=== PATIENT | male | born 2000 | race Caucasian/White ===

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

== ENCOUNTER 2023-02-06 17:16 | Emergency (ER) | payer OTHER, SELFPAY ==
--- NOTE | ~2023-02-06 | XR_ITS ---
EXAMINATION: XR knee RT 3V DATE: 02/06/2023 17:43 INDICATION: Right knee pain TECHNIQUE: Three views of the right knee were obtained. COMPARISON: None. FINDINGS: Alignment is normal. No fracture or osteochondral lesion. Joint spaces are normal with no e rosions. No joint effusion/synovitis. There is marked prepatellar soft tissue swelling of the knee. IMPRESSION: 1. Marked prepatellar knee soft tissue swelling without acute osseous abnormality. Reviewed, dictated and finalized at location F. IMPRESSION: 1. Marked prepatellar knee soft tissue swelling without acute osseous abnormali ty.
--- NOTE | 2023-02-06 17:25 | ED.LOWEXIN ---
HPI - Extremity Injury (Lower) General Chief Complaint: Extremity Injury, Lower Stated Complaint: Right knee injury Time Seen by Provider: 02/06/23 17:26 Source: patient and RN notes reviewed History of Present Illness HPI Narrative: Patient is a 22-year-old male who presents to urgent care with complaints of right knee pain and swelling. 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 Patient does not wear knee pads. No other acute complaints. No acute distress noted. Patient aware of the plan of care. Some parts of this dictation were generated by voice recognition software and may contain typographical and/or grammatical inaccuracies. Related Data Home Medications Medication Instructions Recorded Confirmed erythromycin 5 mg/gram (0.5 %) eye 02/06/23 02/06/23 ointment Allergies Allergy/AdvReac Type Severity Reaction Status Date / Time poison sosa extract Allergy Unknown Rash Verified 02/06/23 17:28 Review of Systems Review of Systems: CONSTITUTIONAL: Denies fever, chills, or sweats. EYES: Denies visual changes, redness, or discharge. ENT: Denies rhinorrhea, congestion, sore throat, or otalgia. CARDIOVASCULAR: Denies chest pain, palpitations, or edema. RESPIRATORY: Denies cough or dyspnea. GASTROINTESTINAL: Denies abdominal pain, nausea, vomiting, or diarrhea. GENITOURINARY: Denies dysuria or hematuria. SKIN: Denies rash or itching. MUSCULOSKELETAL: Reports of anterior right knee pain NEUROLOGIC: Denies headache, numbness, or weakness. All other systems reviewed are negative, except as documented in HPI. PMFSH Comments At the time of my signature, I reviewed and agree with the nursing past medical, surgical, social, and family history. There is no relevant family history pertinent to the patient complaint. Exam Narrative: GENERAL: This is a well-nourished, well-developed patient, in no apparent distress. HEAD: normocephalic, atraumatic. EYES: PERRL. Sclera clear/white. Vision is grossly intact. EARS: External ears normal, NOSE: External nose normal with no obvious nasal discharge, nares without redness, no rhinorrhea. THROAT: Mucous membranes moist NECK: Neck supple SKIN: warm, intact with no suspicious lesions or rash, good texture and turgor. NEURO: awake, alert, and oriented to person, place and time. There were no obvious focal neurologic abnormalities. EXTREMITIES: Moderate edema, consistent with bursitis with mild erythema to the anterior aspect of the right patellar. Negative anterior drawer test. Range of motion with flexion to the right leg limited due to pain. Positive strong right pedal pulse with capillary refill less than 2 seconds. Course Course Level of Care: Express Care Visit Vital Signs Vital signs: Vital Signs Temperature 98.9 F 02/06/23 17:26 Pulse Rate 99 02/06/23 17:26 Respiratory Rate 16 02/06/23 17:26 Blood Pressure 152/69 H 02/06/23 17:26 Pulse Oximetry 99 02/06/23 17:26 Oxygen Delivery Room Air 02/06/23 17:26 Temperature 98.9 F 02/06/23 17:29 Pulse Rate 99 02/06/23 17:29 Respiratory Rate 16 02/06/23 17:29 Blood Pressure 152/69 H 02/06/23 17:29 Pulse Oximetry 99 02/06/23 17:29 Oxygen Delivery Room Air 02/06/23 17:29 Reviewed- Patient is informed that they may have pre-hypertension or hypertension based on a blood pressure reading in the department. I recommend the patient call the primary care provider listed on their discharge instructions or a physician of their choice this week to arrange follow-up for further evaluation of possible pre-hypertension or hypertension. MDM - Extremity Injury (Lower) MDM Narrative Medical decision making narrative: Reviewed x-ray results with the patient. He is aware that there is no fracture however notable swelling to the anterior
[2023-02-06 17:26] VITALS: BP 152/69; PULSE 99; RESP 16; TEMP 37.2; O2SAT 99
[2023-02-06 17:29] VITALS: BP 152/69; PULSE 99; RESP 16; TEMP 37.2; O2SAT 99
== END 2023-02-06 18:04 | disposition home or self-care (01) ==
PROVIDERS: Emergency Provider Nurse Practitioner Family
DX: M25.561 Pain in right knee (principal); M25.461 Effusion, right knee
CPT/HCPCS: 73562; 99213; G0463

== ENCOUNTER 2023-10-20 12:18 | Emergency (ER) | payer OTHER, SELFPAY ==
[2023-10-20 12:26] VITALS: BP 145/76; PULSE 116; RESP 20; TEMP 37.9; O2SAT 98
--- NOTE | 2023-10-20 13:23 | ED.URI ---
HPI - URI/Sore Throat General Chief Complaint: Upper Respiratory Infection Stated Complaint: Sore Throat/Fever History of Present Illness HPI Narrative: 22 y/o male presented for c/o sore throat with painful swallow x2 days. Also with fever and vomiting and diarrhea yesterday. Started taking augmentin x2 days prescribed 2 weeks ago for infected vein. denies cough, sob, wheezing or lethargy. Related Data Home Medications Medication Instructions Recorded Confirmed amoxicillin 875 mg-potassium 1 tablet PO BID 10/20/23 10/20/23 clavulanate 125 mg tablet Allergies Allergy/AdvReac Type Severity Reaction Status Date / Time poison sosa extract Allergy Unknown Rash Verified 02/06/23 17:28 Review of Systems Review of Systems: CONSTITUTIONAL: Denies body aches, fever, chills, or sweats. EYES: Denies visual changes, redness, or discharge. ENT: reports rhinorrhea, congestion, sore throat denies otalgia. CARDIOVASCULAR: Denies chest pain, palpitations, or edema. RESPIRATORY: Denies dyspnea. MUSCULOSKELETAL: Denies back pain, joint pain, or myalgia. NEUROLOGIC: Denies headache Exam Narrative: GENERAL: mildly Ill-appearing, no acute distress. EYES: conjunctivae clear ENT: Mucous membranes moist. TMs pearly velasquez with normal light reflex bilaterally; no tragal tenderness. Oropharynx erythematous without lesions. Tonsils enlarged right slightly bigger than left, without exudate. No drooling, no hoarseness, no trismus, uvula midline. No tripod positioning, hot potato voice, or soft palate swelling. NECK: Supple. bilateral anterior cervical lymphadenopathy CHEST: Clear to auscultation, breath sounds equal. No respiratory distress, speaks in full sentences. HEART: Regular rate and rhythm. No murmur heard. SKIN: Warm, dry, no rash. NEURO: Alert and oriented x3. Course Course Emergency Course: Patient is aware of diagnosis, understands and agrees to treatment plan. Anticipatory guidance given. Patient agrees to follow-up as directed and is aware of reasons to seek care at the emergency department. Portions of this record may have been created with voice recognition software Level of Care: Express Care Visit Vital Signs Vital signs: Vital Signs Temperature 100.2 F H 10/20/23 12:26 Pulse Rate 116 H 10/20/23 12:26 Respiratory Rate 20 10/20/23 12:26 Blood Pressure 145/76 H 10/20/23 12:26 Pulse Oximetry 98 10/20/23 12:26 Oxygen Delivery Room Air 10/20/23 12:26 Temperature 100.2 F H 10/20/23 12:26 Pulse Rate 116 H 10/20/23 12:26 Respiratory Rate 20 10/20/23 12:26 Blood Pressure 145/76 H 10/20/23 12:26 Pulse Oximetry 98 10/20/23 12:26 Oxygen Delivery Room Air 10/20/23 12:26 MDM - URI/Sore Throat MDM Narrative Medical decision making narrative: negative flu, COVID, and strep result reviewed with pt. will treat for strep based on PE and CC. Patient has been taking Augmentin for 2 days but unsure of how many he has left. Discussed the risk of peritonsillar abscess. Reviewed signs and symptoms to go to the ER. Advise supportive treatments. Patient is appropriate for outpatient treatment and follow-up. Differential Diagnosis Differential diagnosis: Likely upper respiratory infection, viral infection and pharyngitis Lab Data Labs: Lab Results 10/20/23 Range/Units 12:38 POC SARS CoV-2 Ag Negative (Negative) Influenza A Screen Negative Reference Range: Negative Influenza B Screen Negative Reference Range: Negative Strep Screen Presumptive Negative *(Reference Range: Negative)* Discharge Plan Discharge Clinical Impression: Pharyngitis Patient Disposition: Home, Self-Care Condition: Stable Instructions: Antibiotic Form, Strep Throat (ED) Additional Instructions
== END 2023-10-20 13:37 | disposition home or self-care (01) ==
PROVIDERS: Emergency Provider Nurse Practitioner Family
DX: J02.9 Acute pharyngitis, unspecified (principal); Z20.822 Contact with and (suspected) exposure to COVID-19
CPT/HCPCS: 87081; 87426; 87804; 87880; 99213; G0463

== ENCOUNTER 2024-01-19 11:04 | Emergency (ER) | payer OTHER, SELFPAY ==
[2024-01-19 11:32] VITALS: BP 124/69; PULSE 58; RESP 16; TEMP 36.7; O2SAT 99
--- NOTE | 2024-01-19 12:31 | ED.GENADULT ---
HPI - General Adult General Chief complaint: Skin/Abscess/Foreign Body Stated complaint: Laceration to Finger Time Seen by Provider: 01/19/24 12:24 Source: patient, RN notes reviewed and old records reviewed Mode of arrival: ambulatory Limitations: no limitations History of Present Illness HPI narrative: 23-year-old male to Express Care for complaint laceration to dorsal side of left index finger 1 hour prior to arrival. 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 patient endorses that last Tdap was 4 years ago. Bleeding controlled upon arrival. Patient denies pain, pertinent medical history, decreased ROM, numbness, tingling. Related Data Allergies Allergy/AdvReac Type Severity Reaction Status Date / Time poison sosa extract Allergy Unknown Rash Verified 02/06/23 17:28 Review of Systems Review of Systems: All systems reviewed & are unremarkable except as noted in HPI and below Constitutional: Constitutional: Reports no additional constitutional complaints Eyes: Eyes: Reports no additional eye complaints ENT: Reports system reviewed and no additional complaints, except as documented Cardiovascular: Cardiovascular: Reports no additional cardiovascular complaints, Denies chest pain and Denies dyspnea Respiratory: Respiratory: Reports no additional respiratory complaints, Denies cough and Denies dyspnea Musculoskeletal: Musculoskeletal: Reports no additional musculoskeletal complaints Integumentary/Breasts: Skin/Breast: Reports as per HPI and Reports wounds Neurologic: Reports system reviewed and no additional complaints, except as documented Psychiatric: Psychiatric: Reports no additional psychiatric complaints PMFSH Comments At the time of my signature, I reviewed and agree with the nursing past medical, surgical, social, and family history. There is no relevant family history pertinent to the patient complaint. Exam Const: General: cooperative, healthy appearing, comfortable, no acute distress, alert and well nourished Nutritional Appearance: well nourished Orientation/consciousness: patient oriented x3 Limitations: no limitations HENMT: Head: normal to inspection Ears: external ears normal Face/Nose/Sinus: Normal external nose present, Normal nares present, normal facial exam, No erythema and No edema Face and sinus: normal facial exam, no erythema and no edema Mouth: Yes Normal oral and palatal mucosa present Eyes: General: appearance normal, both eyes and all related structures Neck: Neck: normal visual inspection, full ROM and no meningeal signs Lymphatic: no lymphadenopathy noted and no lymphedema noted Chest: Chest palpation & inspection: normal inspection of the chest Resp: Effort & Inspection: normal respiratory effort and able to speak in complete sentences Auscultation: clear to auscultation bilaterally Cardio: Jugular venous distension: no JVD Rate: regular rate Rhythm: regular rhythm Back/Spine/Pelvis: Cervical Spine: cervical ROM normal Skin: General skin exam: normal color, turgor normal and laceration (1.5 cm left index finger, dorsal side) Neuro: General: patient oriented x3, gait normal, moves all extremities and no meningeal signs Speech: normal speech Gait exam (Neuro): Normal gait present Extrem: General: normal to inspection, full ROM and capillary refill normal Psych: Appearance: grossly normal and well kempt Course Course Emergency Course: Some parts of this dictation were generated by voice recognition software and may contain typographical and/or grammatical inaccuracies. Level of Care: Express Care Visit Vital Signs Vital signs: Vital Signs Temperature 36.7 C 01/19/24 11:32 Pulse Rate 58 L 01/19/24 11:32 Respiratory Rate 16 01/19/24 11:32 Blood Pressure 124/69 01/19/24 11:32 Pulse Oximetry 99 01/19/24 11:32 Oxygen Delivery Room Air 01/19/24 11:32 Temperature 36.7 C
== END 2024-01-19 13:01 | disposition home or self-care (01) ==
PROVIDERS: Emergency Provider Nurse Practitioner Family
DX: S61.211A Laceration without foreign body of left index finger without damage to nail, initial encounter (principal); W27.8XXA Contact with other nonpowered hand tool, initial encounter
CPT/HCPCS: 12001; 99213; G0463